=== PATIENT | male | born 1945 | race Caucasian/White ===

== ENCOUNTER 2024-05-28 11:22 | Day surgery (SDC) | payer MEDICARE, BC ==
[2024-05-28] MEDS ORDERED: CLINDAMYCIN-D5W 900 MG/50 ML*** 900 MG/50 ML BAG IV ONE (11:29)
[2024-05-28 11:40] VITALS: RESP 18
[2024-05-28 12:26] LABS: Hematocrit 33.9 % (40.1-51.0); Hemoglobin 11.1 g/dL (13.7-17.5); Mean Cell Volume 86.7 fL (79.0-92.2); Mean Corpuscular Hemoglobin 28.4 pg (25.7-32.2); Mean Corpuscular Hgb Concent. 32.7 g/dL (32.3-36.5); Mean Platelet Volume 8.3 fL (9.4-12.4); Platelet Count 193 x10^3/uL (163-337); Red Blood Count 3.91 x10^6/uL (4.63-6.08); Red Cell Distribution Width 15.8 % (11.6-14.4); White Blood Count 8.6 x10^3/uL (4.23-9.07)
[2024-05-28] MEDS: Sodium Chloride 0.9% 1000 ML 1,000 ML IV SCH (12:34)
[2024-05-28] MEDS: CLINDAMYCIN-D5W 900 MG/50 ML*** 900 MG/50 ML BAG IV SCH (12:34)
[2024-05-28 12:37] LABS: ALBUMIN 3.6 g/dL (3.5-5.0); ANION GAP 11.9 MEQ/L (5-15); BILIRUBIN,TOTAL 0.6 mg/dL (0.2-1.3); Calcium 8.8 mg/dL (8.4-10.2); Creatinine 1 1.49 mg/dL (0.66-1.25); EST GLOMERULAR FILTRATION RATE 46.9 ML/MIN; Potassium 3.4 mmol/L (3.5-5.1); Total Protein 6.4 g/dL (6.3-8.2)
[2024-05-28] MEDS ORDERED: XYLOCAINE 1% HCL 20 ML MDV ONE (13:10)
[2024-05-28] MEDS ORDERED: Marcaine Mpf 0.5% Vial 30 Ml ONE (13:10)
[2024-05-28] MEDS ORDERED: GARAMYCIN INJ ONE (14:09)
--- NOTE | 2024-05-28 14:33 | XRAY ---
Indication: Left foot bone biopsy. Bone debridement cuboid/calcaneus. Intraoperative fluoroscopy provided for 1 minute 18 seconds. 8 digital spot images submitted for interpretation demonstrates plantar bone biopsy needle tip projecting adjacent to anterior calcaneus. Correlate with intraoperative findings/report.
[2024-05-28 15:04] VITALS: BP 103/60; PULSE 70; TEMP 97.6; O2SAT 98
--- NOTE | 2024-05-28 15:07 | XRAY ---
One minute and 18 seconds of fluoroscopy was used in surgery for a left foot bone biopsy. Bone debridement cuboid/calcaneus.
--- NOTE | 2024-05-29 10:42 | OP ---
SURGERY DATE/TIME: 05/28/2024 [id number] PREOPERATIVE DIAGNOSES: 1) Osteomyelitis, left foot. 2) Chronic diabetic foot ulcer. 3) Charcot osteoarthropathy. 4) Diabetic peripheral neuropathy. 5) Venous insufficiency. 6) Difficulty with ambulation. POSTOPERATIVE DIAGNOSES: 1) Osteomyelitis, left foot. 2) Chronic diabetic foot ulcer. 3) Charcot osteoarthropathy. 4) Diabetic peripheral neuropathy. 5) Venous insufficiency. 6) Difficulty with ambulation. PROCEDURES: 1) Incision and drainage with bone debridement, left foot. 2) Planing of calcaneus cuboid and fifth metatarsal. 3) Trocar bone biopsy, cuboid calcaneus and fifth metatarsal. 4) Application of negative-pressure wound VAC therapy, left foot. SURGEON: Bill Underwood DPM ASSISTANTS: GERALD BarnesC and Sruthi Pittman, Certified Surgical Trauma Surgeon ANESTHESIA: Local. HEMOSTASIS: Pressure dressing. ESTIMATED BLOOD LOSS: Approximately 20 mL. INJECTABLES: 20 mL of a 1:1 mixture of 1% lidocaine plain and 0.5% bupivacaine plain injected in an ankle block-type fashion. 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 As a result, patient has had subluxation of his cuboid which has resulted in a significant amount of pressure with weightbearing on the plantar aspect of his midfoot, resulting in an ulceration. Patient was progressing without complication to almost being healed in late April, however, backtracked significantly with a bout of cellulitis that opened the wound to twice its original size. Concern was raised about the potential for worsening cellulitis and possibility of bone infection. Patient has had this concern in the past, and bone biopsies were obtained, demonstrating negative findings. At this time, decision was made to proceed with washout of the lower extremity and obtaining bone biopsies. Patient has been made aware that the reason that these wounds are open are because of the shape of his foot and secondary to his neuropathy. Patient and family have expressed that they are outright unwilling to proceed with a reconstruction of his foot; however, in discussion with the patient and his , state that they are open to the idea of planing of the lateral column of the foot in order to offload some of the pressure from the spurs. From that standpoint, patient has been made aware of all risks, complications, and benefits of surgical intervention at this time including, but not limited to, infection, hematoma, seroma, possibility of delayed wound healing, non-wound healing, and possible need for further surgical intervention at a later date. No guarantees were provided as to the outcome of surgical intervention. Plenty of time was allowed for the patient to ask questions as well, which were answered to his apparent satisfaction. From that standpoint, we have decided to proceed. DESCRIPTION OF PROCEDURE AND FINDINGS: Patient was brought into the operating room and placed on the operating room table in the supine position. At this time, general anesthesia was administered until the patient was adequately sedated. The left lower extremity was prepped and draped in the typical sterile fashion and lowered onto the surgical field. At this time, a 20 mL block at the level of the left ankle was provided. This block consisted of 20 mL of a 1:1 mixture of 1% lidocaine plain and 0.5% bupivacaine plain. Once the block took effect, debridement took place utilizing a combination of a 15 blade, pickups, rongeurs, and curettes to start the bone debridement and the incision of the wound itself. Once the wound was assessed and any necrotic or devitalized tissue was debrided, decision was made to make an incision through the plantar fat pad to access the cuboid and the calcaneus, and laterally the fifth metatarsal was exposed through the wound. From that standpoint, bone biopsies were taken as well as bone cultures were taken sequentially from the cuboid, the calcaneus, and then the fifth metatarsal. Once these were performed, 1000 mL of Bactisure was then utilized to flush the surgical site and then 3000 mL of sterile saline was then utilized to flush the Bactisure out, as well as the remainder of the surgical site. Once this was performed, a power rasp was utilized to shave down the plantar as well as lateral prominence on the plantar aspect of the foot and the lateral styloid of the fifth metatarsal. Digital palpation was utilized to assess improvement. The surrounding areas of the plantar aspect of the foot were higher prominent than originally where the original prominence was, offloading the plantar cuboid area. The fifth metatarsal no longer had any prominences after the planing with the power rasp. Once this was performed, sterile saline was once again utilized to flush the site, and then a medium Medela wound VAC was applied, gaining excellent pressure with minimal leaks noted. Once this was performed, a dressing consisting of Adaptic, 4 x 4, Kerlix, ABD, and Eleazar was applied with moderate compression to the patient's left lower extremity. Patient then was reversed from anesthesia and returned to the postoperative anesthesia care unit with vital signs stable and vascular status intact. Patient handled the anesthesia as well as the procedure without significant complication. Postoperative orders as indicated in the patient's discharge chart.
== END 2024-05-28 15:45 | disposition home or self-care (01) ==
LOC: SDC 11:22
PROVIDERS: ATTEND Podiatrist Foot & Ankle Surgery
DX: M86.9 Osteomyelitis, unspecified (principal); E11.621 Type 2 diabetes mellitus with foot ulcer; E11.42 Type 2 diabetes mellitus with diabetic polyneuropathy; M19.072 Primary osteoarthritis, left ankle and foot; R26.2 Difficulty in walking, not elsewhere classified; I73.9 Peripheral vascular disease, unspecified
CPT/HCPCS: 28005; 28122; 36415; 73630; 76000; 80053; 85027; 87046; 87070; 87075; 87116; 87205; 87206; 97605; J1580; J1642